=== PATIENT | male | born 1980 | race Caucasian/White ===

== ENCOUNTER 2016-12-22 14:09 | Emergency (ER) | payer SELFPAY ==
--- NOTE | 2016-12-22 14:28 | ERPHSYRPT ---
- History of Present Illness Time Seen by Provider: 12/22/16 14:23 Source: patient Exam Limitations: no limitations Patient Subjective Stated Complaint: rt foot pain Triage Nursing Assessment: 10 min [employer]--pt kicked a pot with a shoe on out of anger and now has pain to arch part of rt foot--inner rt foot. no bruising or swelling noted. pedal pulse noted. Physician History: Kicked concrete post with R foot about 15 min [employer]. States throbbing pain to R midfoot area but no bruising to area. Unable to bear weight due to pain. Denies any numbness or tingling to distal toes area. Denies any pain to R ankle /leg areas. Method of Injury: direct blow Occurred: just prior to arrival Quality: throbbing Severity of Pain-Max: moderate Severity of Pain-Current: moderate Lower Extremities Pain: foot: right Modifying Factors: Improves With: immobilization (improves), movement (worsens) Associated Symptoms: unable to bear weight, No snapping sensation, No popping sensation Allergies/Adverse Reactions: hydrocodone bitartrate [From Vicodin] Allergy (Mild, Verified 12/22/16 14:18) Rash Home Medications: No Home Meds 1 ea [facility] UD 12/22/16 [History] Hx Tetanus, Diphtheria Vaccination/Date Given: Yes Hx Influenza Vaccination/Date Given: No Hx Pneumococcal Vaccination/Date Given: No Immunizations Up to Date: Yes - Review of Systems Constitutional: No Fever, No Chills Eyes: No Symptoms Ears, Nose, & Throat: No Symptoms Respiratory: No Cough, No Dyspnea Cardiac: No Chest Pain, No Edema, No Syncope Abdominal/Gastrointestinal: No Abdominal Pain, No Nausea, No Vomiting, No Diarrhea Genitourinary Symptoms: No Dysuria Musculoskeletal: Injury, No Back Pain, No Neck Pain Skin: No Symptoms, No Rash Neurological: No Dizziness, No Focal Weakness, No Sensory Changes Psychological: No Symptoms Endocrine: No Symptoms All Other Systems: Reviewed and Negative - Past Medical History Pertinent Past Medical History: Yes Neurological History: Migraines ENT History: No Pertinent History Cardiac History: High Cholesterol Respiratory History: Other (Spontaneous PTX) Endocrine Medical History: No Pertinent History Musculoskeletal History: No Pertinent History GI Medical History: No Pertinent History History: No Pertinent History Psycho-Social History: No Pertinent History Male Reproductive Disorders: No Pertinent History Other Medical History: chronic back pain. collapsed lung spontaneous - Past Surgical History Past Surgical History: No Neuro Surgical History: No Pertinent History Cardiac: No Pertinent History Respiratory: Other Gastrointestinal: No Pertinent History Genitourinary: No Pertinent History Musculoskeletal: No Pertinent History Male Surgical History: No Pertinent History Other Surgical History: no prior back surgery - Social History Smoking Status: Former smoker How long have you smoked: 24 Exposure to second hand smoke: Yes Drug Use: marijuana Patient Lives Alone: No - Nursing Vital Signs Nursing Vital Signs: Initial Vital Signs Temperature 97.3 F Temperature Source Oral Pulse Rate 81 Respiratory Rate 18 Blood Pressure [Right Arm] 159/83 Pain Intensity 8 - Physical Exam General Appearance: alert Eyes, Ears, Nose, Throat Exam: moist mucous membranes Neck Exam: non-tender, supple Cardiovascular/Respiratory Exam: chest non-tender, normal breath sounds, regular rate/rhythm, no respiratory distress Gastrointestinal/Abdominal Exam: non-tender, guarding Back Exam: normal inspection, No vertebral tenderness Knees Exam: bilateral knee: non-tender, normal inspection, normal range of motion, no evidence of injury Ankle Exam: bilateral ankle: non-tender, normal inspection, normal range of motion, no evidence of injury Foot Exam: right foot: bone tenderness (midfoot), limited range of motion, pain , swelling, left foot: non-tender, normal inspection, normal range of motion, no evidence of injury DTR - Lower Extremities Exam: knee (R): 2+, knee (L): 2+ Neuro/Tendon Exam: normal sensation, normal motor functions Mental Status Exam: alert, oriented x 3, cooperative Skin Exam: normal color, warm, dry SpO2: 98 Oxygen Delivery: Room Air - Radiology Exams Right Foot X-ray Interpretation: Interpreted by me, No Fracture Ordered Tests: Active Orders 24 hr Category Date Time Status FOOT (MINIMUM 3 VIEWS) Stat Exams 12/22/16 14:29 Taken Medication Summary Discontinued Medications Generic Name Dose Route Start Last Admin Trade Name Freq PRN Reason Stop Dose Admin Ketorolac Tromethamine 60 mg 12/22/16 14:29 12/22/16 14:34 Toradol 30 Mg Injection IM 12/22/16 14:30 60 mg STAT ONE Administration Ketorolac Tromethamine Confirm 12/22/16 14:33 Toradol 30 Mg Injection Administered 12/22/16 14:34 Dose 60 mg .ROUTE .STK-MED ONE - Progress Progress: improved Progress Note: 12/22/16 14:38 Pt. given Toradoll for pain which did decrease his pain 12/22/16 15:00 Counseled pt/family regarding: diagnosis, rad results - Departure Time of Disposition: 15:01 Departure Disposition: Home Clinical Impression: Contusion of foot, right, Spontaneous pneumothorax Condition: Stable Critical Care Time: No Instructions: Contusion Additional Instructions: Motrin 800mg every 8 hrs with food Rest, ice, elevate and decrease weight bearing to decrease pain/swelling Return for worse pain, swelling, numbness, tingling or any problems
[2016-12-22] MEDS ORDERED: TORAdol 30 mg Injection IM ONE (14:29)
[2016-12-22] MEDS ORDERED: TORAdol 30 mg Injection ONE (14:33)
[2016-12-22 15:28] VITALS: BP 127/80; PULSE 75; O2SAT 100
--- NOTE | 2016-12-22 21:08 | XRAY ---
Indication: Lateral foot pain following kicking injury. Comparison: None 3 nonweightbearing views of the right foot obtained. No bony, articular, or soft tissue abnormalities.
== END 2016-12-22 15:27 | disposition home or self-care (01) ==
LOC: ED 14:09
DX: S90.31XA Contusion of right foot, initial encounter (principal); J93.83 Other pneumothorax; W22.8XXA Striking against or struck by other objects, initial encounter
CPT/HCPCS: 73630; 96372; 99284; J1885

== ENCOUNTER 2018-06-19 00:02 | Emergency (ER) | payer OTHER ==
[2018-06-19] MEDS ORDERED: solu-MEDROL 125 MG IV ONE (00:26)
[2018-06-19] MEDS ORDERED: DUONEB 0.5-3 MG/3 ml Neb IH ONE ×2 (00:26→00:37)
--- NOTE | 2018-06-19 00:26 | ERPHSYRPT ---
- History of Present Illness Time Seen by Provider: 06/19/18 00:22 Source: patient Exam Limitations: no limitations Patient Subjective Stated Complaint: pt states he has been feeling short of breath today and has increased tonight. states he is dizzy and has trouble concentrating. Triage Nursing Assessment: pt alert and oriented, asnwers questions approp. pt pausing occasionally to take deep breath. respirations nonlabored with lungs cta. skin warm, moist. Physician History: The patient is a 38-year-old male complaining that he's been increasingly short of breath for several days but it got worse today. He has COPD and is supposed to take several inhalers but does not because he doesn't like doctors. He denies chest pain. Yesterday he was nauseated and had diarrhea. He had a headache 2 days ago. He used to smoke but quit. His past medical history is significant for COPD. The patient walked a long distance to come to the hospital. Timing/Duration: day(s) (several), gradual onset, worse Activities at Onset: none Severity of Dyspnea-Max: moderate Severity of Dyspnea-Current: mild Possible Cause: occasional episodes Modifying Factors: Improves With: activity Associated Symptoms: productive cough, No edema, No fever Allergies/Adverse Reactions: hydrocodone bitartrate [From Vicodin] Allergy (Mild, Verified 06/19/18 00:17) Rash Home Medications: No Home Meds [No Home Meds] 1 [facility] UD 12/22/16 [History] Hx Tetanus, Diphtheria Vaccination/Date Given: Yes Hx Influenza Vaccination/Date Given: No Hx Pneumococcal Vaccination/Date Given: No Immunizations Up to Date: Yes - Review of Systems Constitutional: No Fever, No Chills Eyes: No Symptoms Ears, Nose, & Throat: No Symptoms Respiratory: Dyspnea, Dyspnea on Exertion (BOYD) Cardiac: No Chest Pain, No Edema, No Syncope Abdominal/Gastrointestinal: No Abdominal Pain, No Nausea, No Vomiting, No Diarrhea Genitourinary Symptoms: No Dysuria Musculoskeletal: No Back Pain, No Neck Pain Skin: No Rash Neurological: No Dizziness, No Focal Weakness, No Sensory Changes Psychological: No Symptoms Endocrine: No Symptoms Hematologic/Lymphatic: No Symptoms Immunological/Allergic: No Symptoms All Other Systems: Reviewed and Negative - Past Medical History Pertinent Past Medical History: Yes Neurological History: Migraines ENT History: No Pertinent History Cardiac History: High Cholesterol Respiratory History: COPD, Other Endocrine Medical History: No Pertinent History Musculoskeletal History: No Pertinent History GI Medical History: No Pertinent History History: No Pertinent History Psycho-Social History: No Pertinent History Male Reproductive Disorders: No Pertinent History Other Medical History: chronic back pain. collapsed lung spontaneous - Past Surgical History Past Surgical History: No Neuro Surgical History: No Pertinent History Cardiac: No Pertinent History Respiratory: Other Gastrointestinal: No Pertinent History Genitourinary: No Pertinent History Musculoskeletal: No Pertinent History Male Surgical History: No Pertinent History Other Surgical History: no prior back surgery - Social History Smoking Status: Former smoker How long have you smoked: 24 Exposure to second hand smoke: Yes Drug Use: marijuana Patient Lives Alone: No - Nursing Vital Signs Nursing Vital Signs: Initial Vital Signs Temperature 97.6 F 06/19/18 00:04 Pulse Rate 89 06/19/18 00:04 Respiratory Rate 20 06/19/18 00:04 Blood Pressure 154/101 06/19/18 00:04 O2 Sat by Pulse Oximetry 100 06/19/18 00:04 Pain Scale Pain Intensity 3 - Physical Exam General Appearance: no apparent distress, alert Eye Exam: PERRL/EOMI Ears, Nose, Throat Exam: hearing grossly normal Neck Exam: normal inspection, supple Respiratory Exam: rhonchi Cardiovascular/Chest Exam: normal heart sounds, regular rate/rhythm Abdominal/Gastrointestinal Exam: soft, No tenderness, No distention, No mass Rectal Exam: not done Extremity Exam: non-tender, normal range of motion, normal inspection, no calf tenderness, no pedal edema Neurologic Exam: alert, oriented x 3, cooperative, digital media analyst II-XII nml as tested, sensation nml, No motor deficits Skin Exam: normal color, warm, No dry SpO2 Interpretation: normal SpO2: 100 Oxygen Delivery: Room Air - Course EKG Interpreted by Me: RATE, Sinus Rhythm, NORMAL AXIS, NORMAL INTERVALS, NORMAL QRS, NORMAL ST-T, Other (no change compared to EKG 05/02/16.) - Radiology Exams Chest X-ray Interpretation: Interpreted by me, Negative, No Pneumothorax - CT Exams Chest CT Interpretation: Tele-radiologist Report (per Dr Colon), No PE, Other (no PTX ; no pneumonia) Ordered Tests: Active Orders 24 hr Category Date Time Status Oxygen-ED Only NASAL CANNULA 2 lpm Care 06/19/18 00:26 Active CHEST 2 VIEWS (PA AND LAT) Stat Exams 06/19/18 00:27 Taken CHEST WITH CONTRAST [CT] Stat Exams 06/19/18 01:17 Taken CBC W DIFF Stat Lab 06/19/18 00:15 Completed CMP Stat Lab 06/19/18 00:15 Completed D-DIMER QUANTITATION Stat Lab 06/19/18 00:15 Completed NT PRO BNP Stat Lab 06/19/18 00:15 Completed TROPONIN Q3H Lab 06/19/18 00:15 Completed TROPONIN Q3H Lab 06/19/18 03:30 Ordered TROPONIN Q3H Lab 06/19/18 06:30 Ordered TROPONIN Q3H Lab 06/19/18 09:30 Ordered TROPONIN Q3H Lab 06/19/18 12:30 Ordered UA W/RFX UR CULTURE Stat Lab 06/19/18 02:35 Completed Urine Triage Profile Stat Lab 06/19/18 02:35 Received Peak Expiratory Flow Rate ONCE RT 06/19/18 00:43 Active Respiratory Nebulizer STAT RT 06/19/18 00:27 Completed Respiratory Therapy Assessment DAILY RT 06/19/18 00:43 Active Medication Summary Discontinued Medications Generic Name Dose Route Start Last Admin Trade Name Freq PRN Reason Stop Dose Admin Albuterol/Ipratropium 3 ml 06/19/18 00:26 06/19/18 00:38 Duoneb 0.5-3 Mg/3 Ml Neb IH 06/19/18 00:27 3 ml STAT ONE Administration Albuterol/Ipratropium Confirm 06/19/18 00:37 Duoneb 0.5-3 Mg/3 Ml Neb Administered 06/19/18 00:38 Dose 3 ml IH .STK-MED ONE Methylprednisolone Sodium Succinate 125 mg 06/19/18 00:26 06/19/18 00:45 Solu-Medrol 125 Mg IV 06/19/18 00:27 125 mg STAT ONE Administration Methylprednisolone Sodium Succinate Confirm 06/19/18 00:42 Solu-Medrol 125 Mg Administered 06/19/18 00:43 Dose 125 mg .ROUTE .STK-MED ONE Lab/Rad Data: Laboratory Result Diagrams 06/19/18 00:15 06/19/18 00:15 Laboratory Results 06/19/18 06/19/18 06/19/18 Range/Units 02:35 02:35 00:15 WBC (4.0-10.5) K/mm3 RBC (4.1-5.6) M/mm3 Hgb (12.5-18.0) gm/dl Hct (42-50) % MCV (78-100) fl MCH (26-32) pg MCHC (32-36) g/dl RDW (11.5-14.0) % Plt Count (150-450) K/mm3 MPV (6-9.5) fl Gran % (36.0-66.0) % Eos # (Auto) (0-0.5) Absolute Lymphs (auto) (1.0-4.6) Absolute Monos (auto) (0.0-1.3) Lymphocytes % (24.0-44.0) % Monocytes % (0.0-12.0) % Eosinophils % (0.00-5.0) % Basophils % (0.0-0.4) % Absolute Granulocytes (1.4-6.9) Basophils # (0-0.4) D-Dimer (215-500) ng/mL Sodium (137-145) mmol/L Potassium (3.5-5.1) mmol/L Chloride (98-107) mmol/L Carbon Dioxide (22-30) mmol/L Anion Gap (5-15) MEQ/L BUN (9-20) mg/dL Creatinine (0.66-1.25) mg/dL Estimated GFR ML/MIN Glucose (74-106) mg/dL Calcium (8.4-10.2) mg/dL Total Bilirubin (0.2-1.3) mg/dL AST (17-59) U/L ALT (0-50) U/L Alkaline Phosphatase (38-126) U/L Troponin I < 0.012 (0.000-0.034) ng/mL NT-Pro-B Natriuret Pep (0-450) pg/mL Serum Total Protein (6.3-8.2) g/dL Albumin (3.5-5.0) g/dL Ur Collection Type CLEAN CATCH Urine Color YELLOW (YELLOW) Urine Appearance CLEAR (CLEAR) Urine pH 5.0 (5-6) Ur Specific [place] 1.015 (1.005-1.025) Urine Protein NEGATIVE (Negative) Urine Ketones NEGATIVE (NEGATIVE) Urine Blood NEGATIVE (0-5) [place]/ul Urine Nitrite NEGATIVE (NEGATIVE) Urine Bilirubin NEGATIVE (NEGATIVE) Urine Urobilinogen NORMAL (0-1) mg/dL Ur Leukocyte Esterase NEGATIVE (NEGATIVE) Urine Culture Reflexed NO (NO) Urine Glucose 1000 (NEGATIVE) mg/dL Urine Opiates Level NEGATIVE (NEGATIVE) Ur Methadone NEGATIVE (NEGATIVE) Urine Barbiturates NEGATIVE (NEGATIVE) Ur Phencyclidine (PCP) NEGATIVE (NEGATIVE) Urine Amphetamine NEGATIVE (NEGATIVE) U Benzodiazepine Level NEGATIVE (NEGATIVE) Urine Cocaine NEGATIVE (NEGATIVE) Urine Marijuana (THC) POSITIVE (NEGATIVE) 06/19/18 06/19/18 06/19/18 Range/Units 00:15 00:15 00:15 WBC 6.4 (4.0-10.5) K/mm3 RBC 5.19 (4.1-5.6) M/mm3 Hgb 15.7 (12.5-18.0) gm/dl Hct 43.8 (42-50) % MCV 84.4 (78-100) fl MCH 30.3 (26-32) pg MCHC 35.8 (32-36) g/dl RDW 12.5 (11.5-14.0) % Plt Count 147 L (150-450) K/mm3 MPV 12.6 H (6-9.5) fl Gran % 57.4 (36.0-66.0) % Eos # (Auto) 0.24 (0-0.5) Absolute Lymphs (auto) 2.12 (1.0-4.6) Absolute Monos (auto) 0.33 (0.0-1.3) Lymphocytes % 33.0 (24.0-44.0) % Monocytes % 5.1 (0.0-12.0) % Eosinophils % 3.7 (0.00-5.0) % Basophils % 0.8 (0.0-0.4) % Absolute Granulocytes 3.68 (1.4-6.9) Basophils # 0.05 (0-0.4) D-Dimer 681 H* (215-500) ng/mL Sodium 140 (137-145) mmol/L Potassium 3.9 (3.5-5.1) mmol/L Chloride 101 (98-107) mmol/L Carbon Dioxide 24 (22-30) mmol/L Anion Gap 18.3 H (5-15) MEQ/L BUN 17 (9-20) mg/dL Creatinine 1.01 (0.66-1.25) mg/dL Estimated GFR > 60.0 ML/MIN Glucose 315 H (74-106) mg/dL Calcium 10.1 (8.4-10.2) mg/dL Total Bilirubin 0.50 (0.2-1.3) mg/dL AST 16 L (17-59) U/L ALT 18 (0-50) U/L Alkaline Phosphatase 69 (38-126) U/L Troponin I (0.000-0.034) ng/mL NT-Pro-B Natriuret Pep 31.2 (0-450) pg/mL Serum Total Protein 7.6 (6.3-8.2) g/dL Albumin 4.7 (3.5-5.0) g/dL Ur Collection Type Urine Color (YELLOW) Urine Appearance (CLEAR) Urine pH (5-6) Ur Specific [place] (1.005-1.025) Urine Protein (Negative) Urine Ketones (NEGATIVE) Urine Blood (0-5) [place]/ul Urine Nitrite (NEGATIVE) Urine Bilirubin (NEGATIVE) Urine Urobilinogen (0-1) mg/dL Ur Leukocyte Esterase (NEGATIVE) Urine Culture Reflexed (NO) Urine Glucose (NEGATIVE) mg/dL Urine Opiates Level (NEGATIVE) Ur Methadone (NEGATIVE) Urine Barbiturates (NEGATIVE) Ur Phencyclidine (PCP) (NEGATIVE) Urine Amphetamine (NEGATIVE) U Benzodiazepine Level (NEGATIVE) Urine Cocaine (NEGATIVE) Urine Marijuana (THC) (NEGATIVE) - Progress Progress: improved Air Movement: good Blood Culture(s) Obtained: No Antibiotics given: No Counseled pt/family regarding: lab results, diagnosis, need for follow-up, rad results - Departure Time of Disposition: 03:12 Departure Disposition: Home Clinical Impression: COPD (chronic obstructive pulmonary disease) Condition: Stable Critical Care Time: No Referrals: MAYRA MOLINA [Primary Care Provider] - Instructions: Chronic Obstructive Pulmonary Disease Additional Instructions: You have COPD. You were given a breathing treatment with albuterol neb and Solu -Medrol 125 mg by IV in the ER. Your CT scan of your chest did not show any embolism nor did it show any lung collapse. Follow-up with your primary medical doctor later this week.
[2018-06-19 00:39] LABS: BASOPHIL % 0.8 % (0.0-0.4); Basophil (Absolute #) 0.05 (0-0.4); Eosinophil % 3.7 % (0.00-5.0); Eosinophil (Absolute #) 0.24 (0-0.5); Granulocyte Absolute (ANC) 3.68 (1.4-6.9); Granulocytes % 57.4 % (36.0-66.0); Hematocrit 43.8 % (42-50); Hemoglobin 15.7 gm/dl (12.5-18.0); Lymphocyte (Absolute #) 2.12 (1.0-4.6); Mean Cell Volume 84.4 fl (78-100); Mean Corpuscular Hemoglobin 30.3 pg (26-32); Mean Corpuscular Hgb Concent. 35.8 g/dl (32-36); Mean Platelet Volume 12.6 fl (6-9.5); Monocyte (Absolute #) 0.33 (0.0-1.3); Monocytes % 5.1 % (0.0-12.0); Platelet Count 147 K/mm3 (150-450); Red Blood Count 5.19 M/mm3 (4.1-5.6); Red Cell Distribution Width 12.5 % (11.5-14.0); White Blood Count 6.4 K/mm3 (4.0-10.5)
[2018-06-19] MEDS ORDERED: solu-MEDROL 125 MG ONE (00:42)
[2018-06-19 01:09] LABS: ALBUMIN 4.7 g/dL (3.5-5.0); ALKALINE PHOSPHATASE 69 U/L (38-126); ANION GAP 18.3 MEQ/L (5-15); BLOOD UREA NITROGEN 17 mg/dL (9-20); CHLORIDE 101 mmol/L (98-107); Calcium 10.1 mg/dL (8.4-10.2); Carbon Dioxide 24 mmol/L (22-30); Creatinine 1 1.01 mg/dL (0.66-1.25); Glucose 315 mg/dL (74-106); NT PRO BNP 31.2 pg/mL (0-450); Potassium 3.9 mmol/L (3.5-5.1); SGOT/AST 16 U/L (17-59); SGPT/ALT 18 U/L (0-50); SODIUM 140 mmol/L (137-145); Total Protein 7.6 g/dL (6.3-8.2)
[2018-06-19 02:52] VITALS: BP 127/88; PULSE 67
[2018-06-19 02:58] LABS: Appearance CLEAR (CLEAR); Bilirubin NEGATIVE (NEGATIVE); Blood NEGATIVE Ery/ul (0-5); Glucose 1000 mg/dL (NEGATIVE); Ketones NEGATIVE (NEGATIVE); Leukocyte Esterase NEGATIVE (NEGATIVE); Nitrite NEGATIVE (NEGATIVE); Protein,Urine Dip NEGATIVE (Negative); Specific Gravity 1.015 (1.005-1.025); Urobilinogen NORMAL mg/dL (0-1)
[2018-06-19 03:07] LABS: Amphetamine,Urine NEGATIVE (NEGATIVE); Barbiturate,Urine NEGATIVE (NEGATIVE); Benzodiazepine,Urine NEGATIVE (NEGATIVE); Cocaine,Urine NEGATIVE (NEGATIVE); Methadone,Urine NEGATIVE (NEGATIVE); Opiate,Urine NEGATIVE (NEGATIVE); PCP,Urine NEGATIVE (NEGATIVE); THC,Urine POSITIVE (NEGATIVE)
[2018-06-19 03:09] VITALS: O2SAT 100
--- NOTE | 2018-06-19 09:05 | XRAY ---
Indication: Short of breath. Elevated d-dimer. Multiple contiguous axial images obtained through the chest using 80 cc Isovue 370 contrast and PE protocol. Comparison: None There is satisfactory opacification of the pulmonary arteries to include the lobar and segmental branches. No filling defect or pulmonary embolus. Heart is not enlarged. Aorta is normal in course and caliber. No pathologic mediastinal/hilar lymphadenopathy. Examination of the lung parenchyma demonstrates mild bilateral dependent atelectasis. No suspicious pulmonary mass, infiltrate, or effusion. Bony thorax intact. Limited upper abdomen including adrenal glands unremarkable. Impression: Negative pulmonary embolus. No acute cardiopulmonary abnormalities. Comment: Preliminary interpretation was made by [facility] [[email or web address]]. No discrepancy. CT DI 14.13
--- NOTE | 2018-06-19 09:07 | XRAY ---
Indication: Short of breath. Comparison: May 02, 2016. PA/lateral chest hyperinflated and clear. Heart and mediastinal structures within normal limits. Bony thorax intact. Impression: Nonacute hyperinflated chest.
== END 2018-06-19 03:34 | disposition home or self-care (01) ==
LOC: ED 00:02
DX: J44.9 Chronic obstructive pulmonary disease, unspecified (principal)
CPT/HCPCS: 36415; 71046; 71260; 80053; 80307; 81002; 83880; 84484; 85025; 85379; 94150; 94640; 96374; 99284; J2930; A9270-GY

== ENCOUNTER 2021-04-22 22:40 | Emergency (ER) | payer OTHER ==
[2021-04-22] MEDS ORDERED: Zofran 4 MG/2 ML VIAL ONE (22:57)
[2021-04-22] MEDS ORDERED: Sodium Chloride 0.9% 1000 ML 1,000 ML ONE (22:57)
[2021-04-22] MEDS ORDERED: Zofran 4 MG/2 ML VIAL IV ONE (22:58)
[2021-04-22] MEDS ORDERED: Sodium Chloride 0.9% 1000 ML 1,000 ML IV STA (22:58)
[2021-04-22 23:40] LABS: Absolute Neutrophil Ct (ANC) 2.09 (1.4-6.9); BASOPHIL % 0.4 % (0.0-0.4); Basophil (Absolute #) 0.01 (0-0.4); Eosinophil % 0.7 % (0.00-5.0); Eosinophil (Absolute #) 0.02 (0-0.5); Hematocrit 41.9 % (42-50); Hemoglobin 14.3 gm/dl (12.5-18.0); Lymphocyte (Absolute #) 0.45 (1.0-4.6); Mean Cell Volume 85.3 fl (78-100); Mean Corpuscular Hemoglobin 29.1 pg (26-32); Mean Corpuscular Hgb Concent. 34.1 g/dl (32-36); Mean Platelet Volume 12.5 fl (7.5-11.0); Monocyte (Absolute #) 0.25 (0.0-1.3); Monocytes % 8.9 % (0.0-12.0); Platelet Count 74 K/mm3 (150-450); Red Blood Count 4.91 M/mm3 (4.1-5.6); Red Cell Distribution Width 12.4 % (11.5-14.0); White Blood Count 2.8 K/mm3 (4.0-10.5)
[2021-04-22 23:41] LABS: INR 1.14 (0.8-3.0); PROTIME 13.4 SECONDS (9.4-12.5)
[2021-04-22 23:54] LABS: ALBUMIN 4.5 g/dL (3.5-5.0); ALKALINE PHOSPHATASE 62 U/L (38-126); ANION GAP 17.9 MEQ/L (5-15); BLOOD UREA NITROGEN 15 mg/dL (9-20); CHLORIDE 101 mmol/L (98-107); Calcium 9.1 mg/dL (8.4-10.2); Carbon Dioxide 23 mmol/L (22-30); Creatinine 1 0.89 mg/dL (0.66-1.25); EST GLOMERULAR FILTRATION RATE > 60.0 ML/MIN; Glucose 218 mg/dL (74-106); MAGNESIUM 1.9 mg/dL (1.6-2.3); NT PRO BNP 50.2 pg/mL (0-450); Potassium 3.7 mmol/L (3.5-5.1); SGOT/AST 22 U/L (17-59); SGPT/ALT 15 U/L (0-50); SODIUM 138 mmol/L (137-145); Total Protein 7.3 g/dL (6.3-8.2)
--- NOTE | 2021-04-23 00:42 | ERPHSYRPT ---
- History of Present Illness Time Seen by Provider: 04/22/21 23:00 Patient Subjective Stated Complaint: Pt states, "my has covid and I started feeling a little bad last night but was able to work today. After work, I started feeling really bad, my chest is on fire, hurts to take a deep breath, diarrhea today, body aches, fatigue, chilling, no taste or smell". Triage Nursing Assessment: Pt arrived at ER via family car. Pt c/o not feeling great last night but was ok for most of the day today as he was able to work. After work today, starting feeling much worse around 2100. Pt states, "my chest feels like it's on fire, chest hurts when taking a deep breath, diarrhea several times today, body aches all over, chills, fatigue. Pt denies nausea, vomiting and fatigue. Physician History: Patient is a 41-year-old male whose has had Covid according to him numerous times who presents with a complaint of shortness of breath chest pain profuse sweats lost of taste and smell body aches headache diarrhea etc. Symptoms started yesterday and were worse today. Timing/Duration: yesterday Activities at Onset: none Severity of Dyspnea-Max: moderate Severity of Dyspnea-Current: moderate Possible Cause: no prior episodes Modifying Factors: Improves With: coughing Associated Symptoms: cough, chest pain/discomfort, weakness, sweating Allergies/Adverse Reactions: hydrocodone bitartrate [From Vicodin] Allergy (Mild, Verified 06/19/18 00:17) Rash Home Medications: No Home Meds [No Home Meds] 1 rudi ANG 12/22/16 [History] Hx Tetanus, Diphtheria Vaccination/Date Given: Yes Hx Influenza Vaccination/Date Given: No Hx Pneumococcal Vaccination/Date Given: No Immunizations Up to Date: Yes Travel Risk - International Travel Have you traveled outside of the country in past 3 weeks: No - Coronavirus Screening Symptoms: Shortness of Breath, Vomiting/Diarrhea, Loss of Taste or Smell, Headaches/Body Aches/Fatigue Close contact with a COVID-19 positive Pt in past 14-21 Days: Yes - Vaccine Status Have you recieved a Covid-19 vaccination: No - Review of Systems Constitutional: Night Sweats Eyes: No Symptoms Ears, Nose, & Throat: No Symptoms Respiratory: Cough, Dyspnea, Dyspnea on Exertion (BOYD) Cardiac: Chest Pain Abdominal/Gastrointestinal: Abdominal Pain, Nausea, Diarrhea Genitourinary Symptoms: No Dysuria Musculoskeletal: Arthralgias, Back Pain, Neck Pain, Joint Redness, Joint Pain, Myalgias Skin: No Rash Neurological: Headache Psychological: No Symptoms Endocrine: No Symptoms - Past Medical History Pertinent Past Medical History: Yes Neurological History: Migraines ENT History: No Pertinent History Cardiac History: High Cholesterol Respiratory History: COPD, Emphysema, Other Endocrine Medical History: No Pertinent History Musculoskeletal History: No Pertinent History GI Medical History: No Pertinent History History: No Pertinent History Psycho-Social History: No Pertinent History Male Reproductive Disorders: No Pertinent History Other Medical History: chronic back pain. collapsed lung spontaneous - Past Surgical History Past Surgical History: Yes Neuro Surgical History: No Pertinent History Cardiac: No Pertinent History Respiratory: Other Gastrointestinal: No Pertinent History Genitourinary: No Pertinent History Musculoskeletal: No Pertinent History Male Surgical History: No Pertinent History Other Surgical History: no prior back surgery - Social History Smoking Status: Current every day smoker How long have you smoked: 25 Exposure to second hand smoke: Yes Drug Use: none Patient Lives Alone: No - Nursing Vital Signs Nursing Vital Signs: Initial Vital Signs Temperature 98.8 F 04/22/21 22:55 Pulse Rate 82 04/22/21 22:55 Respiratory Rate 18 04/22/21 22:55 Blood Pressure 122/80 04/22/21 22:55 O2 Sat by Pulse Oximetry 100 04/22/21 22:55 Pain Scale Pain Intensity 7 - Physical Exam General Appearance: moderate distress, alert Eye Exam: PERRL/EOMI Neck Exam: normal inspection, supple Respiratory Exam: diminished breath sounds Cardiovascular/Chest Exam: normal heart sounds, regular rate/rhythm Abdominal/Gastrointestinal Exam: soft, No tenderness, No distention, No mass Extremity Exam: non-tender, normal range of motion, normal inspection, no calf tenderness, no pedal edema Neurologic Exam: alert, oriented x 3, cooperative, bottom filler II-XII nml as tested, sensation nml, No motor deficits Skin Exam: normal color, warm, No dry SpO2 Interpretation: normal SpO2: 98 O2 Delivery: Room Air - Course Nursing assessment & vital signs reviewed: Yes EKG Interpreted by Me: RATE (77), Sinus Rhythm, NORMAL AXIS, NORMAL INTERVALS, NORMAL QRS, NORMAL ST-T - Radiology Exams Chest X-ray Interpretation: Interpreted by me, Other (Hardware is noted and there seems to be a faint infiltrate in the left lower lobe.) Ordered Tests: Active Orders 24 hr Category Date Time Status Nephrology Social Worker STAT Care 04/22/21 23:03 Active EKG-ER Only STAT Care 04/22/21 23:03 Active IV Insertion STAT Care 04/22/21 23:02 Active CHEST 1 VIEW (PORTABLE) Stat Exams 04/23/21 00:10 Taken BLOOD CULTURE Stat Lab 04/22/21 23:59 Received CBC W DIFF Stat Lab 04/22/21 23:33 Completed CMP Stat Lab 04/22/21 23:33 Completed D-DIMER QUANTITATIVE Stat Lab 04/22/21 23:33 Completed Lactic Acid Stat Lab 04/22/21 23:30 Completed MAGNESIUM Stat Lab 04/22/21 23:33 Completed NT PRO BNP Stat Lab 04/22/21 23:33 Completed PROTIME WITH INR Stat Lab 04/22/21 23:33 Completed TROPONIN Q3H Lab 04/22/21 23:33 Completed TROPONIN Q3H Lab 04/23/21 02:30 Ordered TROPONIN Q3H Lab 04/23/21 05:30 Ordered TROPONIN Q3H Lab 04/23/21 08:30 Ordered TROPONIN Q3H Lab 04/23/21 11:30 Ordered UA W/RFX UR CULTURE Stat Lab 04/23/21 00:24 Received Medication Summary Discontinued Medications Generic Name Dose Route Start Last Admin Trade Name Freq PRN Reason Stop Dose Admin Sodium Chloride 1,000 mls @ 999 mls/hr 04/22/21 22:58 04/22/21 22:59 Sodium Chloride 0.9% 1000 Ml IV 04/22/21 23:58 999 mls/hr .Q1H1M STA Administration Sodium Chloride Confirm 04/22/21 22:57 Sodium Chloride 0.9% 1000 Ml Administered 04/22/21 22:58 Dose 1,000 mls @ ud .ROUTE .STK-MED ONE Ondansetron HCl 4 mg 04/22/21 22:58 04/22/21 23:00 Zofran 4 Mg/2 Ml Vial IV 04/22/21 22:59 4 mg STAT ONE Administration Ondansetron HCl Confirm 04/22/21 22:57 Zofran 4 Mg/2 Ml Vial Administered 04/22/21 22:58 Dose 4 mg .ROUTE .STK-MED ONE Lab/Rad Data: Laboratory Result Diagrams 04/22/21 23:33 04/22/21 23:33 Laboratory Results 04/23/21 04/22/21 04/22/21 Range/Units 00:00 23:33 23:33 WBC (4.0-10.5) K/mm3 RBC (4.1-5.6) M/mm3 Hgb (12.5-18.0) gm/dl Hct (42-50) % MCV (78-100) fl MCH (26-32) pg MCHC (32-36) g/dl RDW (11.5-14.0) % Plt Count (150-450) K/mm3 MPV (7.5-11.0) fl Gran % (36.0-66.0) % Eos # (Auto) (0-0.5) Absolute Lymphs (auto) (1.0-4.6) Absolute Monos (auto) (0.0-1.3) Lymphocytes % (24.0-44.0) % Monocytes % (0.0-12.0) % Eosinophils % (0.00-5.0) % Basophils % (0.0-0.4) % Absolute Granulocytes (1.4-6.9) Basophils # (0-0.4) PT 13.4 H (9.4-12.5) SECONDS INR 1.14 (0.8-3.0) D-Dimer 416 (215-500) ng/mL Sodium (137-145) mmol/L Potassium (3.5-5.1) mmol/L Chloride (98-107) mmol/L Carbon Dioxide (22-30) mmol/L Anion Gap (5-15) MEQ/L BUN (9-20) mg/dL Creatinine (0.66-1.25) mg/dL Estimated GFR ML/MIN Glucose (74-106) mg/dL Lactic Acid (0.4-2.0) Calcium (8.4-10.2) mg/dL Magnesium (1.6-2.3) mg/dL Total Bilirubin (0.2-1.3) mg/dL AST (17-59) U/L ALT (0-50) U/L Alkaline Phosphatase (38-126) U/L Troponin I < 0.012 (0.000-0.034) ng/mL NT-Pro-B Natriuret Pep (0-450) pg/mL Serum Total Protein (6.3-8.2) g/dL Albumin (3.5-5.0) g/dL SARS-CoV-2 (PCR) POSITIVE A (NEGATIVE) 04/22/21 04/22/21 04/22/21 Range/Units 23:33 23:33 23:30 WBC 2.8 L (4.0-10.5) K/mm3 RBC 4.91 (4.1-5.6) M/mm3 Hgb 14.3 (12.5-18.0) gm/dl Hct 41.9 L (42-50) % MCV 85.3 (78-100) fl MCH 29.1 (26-32) pg MCHC 34.1 (32-36) g/dl RDW 12.4 (11.5-14.0) % Plt Count 74 L (150-450) K/mm3 MPV 12.5 H (7.5-11.0) fl Gran % 74.0 H (36.0-66.0) % Eos # (Auto) 0.02 (0-0.5) Absolute Lymphs (auto) 0.45 L (1.0-4.6) Absolute Monos (auto) 0.25 (0.0-1.3) Lymphocytes % 16.0 L (24.0-44.0) % Monocytes % 8.9 (0.0-12.0) % Eosinophils % 0.7 (0.00-5.0) % Basophils % 0.4 (0.0-0.4) % Absolute Granulocytes 2.09 (1.4-6.9) Basophils # 0.01 (0-0.4) PT (9.4-12.5) SECONDS INR (0.8-3.0) D-Dimer (215-500) ng/mL Sodium 138 (137-145) mmol/L Potassium 3.7 (3.5-5.1) mmol/L Chloride 101 (98-107) mmol/L Carbon Dioxide 23 (22-30) mmol/L Anion Gap 17.9 H (5-15) MEQ/L BUN 15 (9-20) mg/dL Creatinine 0.89 (0.66-1.25) mg/dL Estimated GFR > 60.0 ML/MIN Glucose 218 H (74-106) mg/dL Lactic Acid 1.3 (0.4-2.0) Calcium 9.1 (8.4-10.2) mg/dL Magnesium 1.9 (1.6-2.3) mg/dL Total Bilirubin 0.40 (0.2-1.3) mg/dL AST 22 (17-59) U/L ALT 15 (0-50) U/L Alkaline Phosphatase 62 (38-126) U/L Troponin I (0.000-0.034) ng/mL NT-Pro-B Natriuret Pep 50.2 (0-450) pg/mL Serum Total Protein 7.3 (6.3-8.2) g/dL Albumin 4.5 (3.5-5.0) g/dL SARS-CoV-2 (PCR) (NEGATIVE) - Progress Progress: unchanged Air Movement: good Blood Culture(s) Obtained: Yes Antibiotics given: Yes - Departure Departure Disposition: Home Clinical Impression: COVID-19 Condition: Stable Critical Care Time: No Referrals: MAYRA MOLINA [Primary Care Provider] - Instructions: Coronavirus Disease 2019 (COVID-19) (DC) Prescriptions: Dexamethasone 4 mg [Decadron 4 MG] 4 mg PO BID 7 Days #28 tablet Azithromycin [Zithromax] 500 mg PO DAILY 5 Days #5 tablet
[2021-04-23 01:07] VITALS: BP 104/65; PULSE 70
[2021-04-23 01:08] VITALS: O2SAT 98
[2021-04-23] MEDS ORDERED: Zithromax 250 MG TABLET PO ONE (01:08)
[2021-04-23] MEDS ORDERED: Zithromax 250 MG TABLET ONE (01:13)
[2021-04-23] MEDS ORDERED: Decadron 4 MG PO ONE (01:15)
[2021-04-23 01:54] LABS: Appearance CLEAR (CLEAR); Bilirubin NEGATIVE (NEGATIVE); Blood NEGATIVE Ery/ul (0-5); Glucose >=500 mg/dL (NEGATIVE); Ketones MODERATE (NEGATIVE); Leukocyte Esterase NEGATIVE (NEGATIVE); Mucus SLIGHT /HPF (NEGATIVE); Nitrite NEGATIVE (NEGATIVE); Protein,Urine Dip NEGATIVE (Negative); Specific Gravity 1.018 (1.005-1.025); Urobilinogen NEGATIVE mg/dL (0-1); WBC 0-2 /HPF (0-5)
[2021-04-23 01:56] LABS: Bacteria NONE SEEN /HPF (NEGATIVE); RBC NONE SEEN /HPF (0-2)
--- NOTE | 2021-04-23 06:42 | XRAY ---
Indication: Short of breath. Comparison: June 19, 2018. Portable chest remains hyperinflated and clear. Heart not enlarged. Bony thorax intact. No new/acute findings.
== END 2021-04-23 01:40 | disposition home or self-care (01) ==
LOC: ED 22:40
DX: U07.1 COVID-19 (principal)
CPT/HCPCS: 36000; 36415; 71045; 80053; 81001; 83605; 83735; 83880; 84484; 85025; 85379; 85610; 87040; 93005; 93041; 96360; 96374; 99284; U0003; J2405; A9270-GY

== ENCOUNTER 2021-05-07 08:45 | Emergency (ER) | payer OTHER ==
[2021-05-07] MEDS ORDERED: Zofran 4 MG/2 ML VIAL IV ONE (09:25)
[2021-05-07] MEDS ORDERED: MORPHINE SULFATE 4 MG INJ IV ONE (09:25)
[2021-05-07] MEDS ORDERED: MORPHINE SULFATE 4 MG INJ ONE (09:26)
[2021-05-07] MEDS ORDERED: Sodium Chloride 0.9% 1000 ML 1,000 ML ONE (09:26)
--- NOTE | 2021-05-07 09:27 | ERPHSYRPT ---
- History of Present Illness Time Seen by Provider: 05/07/21 08:47 Source: patient Exam Limitations: no limitations Patient Subjective Stated Complaint: Patient states he believes he has a collapsed lung. States he in uncomfortable on his right side of chest that it hurts to take a deep breath and lean forward. States it feels like he is "under water". States he also has epigastric pain. Triage Nursing Assessment: Patient to ED for chest pain and shortness of breath. History of collapsed lung. Lung sounds on right side diminished. Shortness of breath with activity. Epigastric pain with movement. 95% on room air. Physician History: 41 years old male with history of COPD, multiple spontaneous pneumothoraces in the past needing chest intubations presented in the ER with shortness of breath upon waking up this morning, continuous, moderate, aggravated with deep breathing and leaning forward with some substernal/right-sided chest pain. No palpitations. Patient is on room air 95%. Reports symptoms similar to last time when he had a spontaneous pneumothorax. No history of CAD. Patient also reports being tested positive for COVID-19 little over 2 weeks ago and finished quarantine and has been tested negative. Did not have Covid vaccine. Timing/Duration: today, constant, sudden Activities at Onset: sleep Severity of Dyspnea-Max: moderate Severity of Dyspnea-Current: moderate Possible Cause: unknown cause Modifying Factors: Worsens With: coughing, deep breath, exertion Associated Symptoms: anxiety, chest pain/discomfort, painful breathing, tightness Allergies/Adverse Reactions: hydrocodone bitartrate [From Vicodin] Allergy (Mild, Verified 06/19/18 00:17) Rash dexamethasone [From Decadron] Allergy (Unknown, Verified 05/07/21 09:05) Home Medications: No Home Meds [No Home Meds] 1 ea MC UD 12/22/16 [History] Hx Tetanus, Diphtheria Vaccination/Date Given: Yes Hx Influenza Vaccination/Date Given: No Hx Pneumococcal Vaccination/Date Given: No Travel Risk - International Travel Have you traveled outside of the country in past 3 weeks: No - Coronavirus Screening Are you exhibiting any of the following symptoms?: Yes Symptoms: Shortness of Breath - Vaccine Status Have you recieved a Covid-19 vaccination: No - Review of Systems Constitutional: Fatigue Eyes: No Symptoms Ears, Nose, & Throat: No Symptoms Respiratory: Dyspnea, Dyspnea on Exertion (BOYD) Cardiac: Chest Pain Abdominal/Gastrointestinal: No Symptoms Genitourinary Symptoms: No Symptoms Musculoskeletal: No Symptoms Skin: No Symptoms Neurological: No Symptoms Psychological: Anxiety Endocrine: No Symptoms Hematologic/Lymphatic: No Symptoms Immunological/Allergic: No Symptoms - Past Medical History Pertinent Past Medical History: Yes Neurological History: Migraines ENT History: No Pertinent History Cardiac History: High Cholesterol Respiratory History: COPD, Emphysema, Other Endocrine Medical History: No Pertinent History Musculoskeletal History: No Pertinent History GI Medical History: No Pertinent History History: No Pertinent History Psycho-Social History: No Pertinent History Male Reproductive Disorders: No Pertinent History Other Medical History: chronic back pain. collapsed lung spontaneous - Past Surgical History Past Surgical History: Yes Neuro Surgical History: No Pertinent History Cardiac: No Pertinent History Respiratory: Other Gastrointestinal: No Pertinent History Genitourinary: No Pertinent History Musculoskeletal: No Pertinent History Male Surgical History: No Pertinent History Other Surgical History: "lung surgery" - Social History Smoking Status: Never smoker How long have you smoked: 25 Exposure to second hand smoke: No Drug Use: marijuana Patient Lives Alone: No - Nursing Vital Signs Nursing Vital Signs: Initial Vital Signs Temperature 97.2 F 05/07/21 08:46 Pulse Rate 83 05/07/21 08:46 Respiratory Rate 20 05/07/21 08:46 Blood Pressure 147/91 05/07/21 08:46 O2 Sat by Pulse Oximetry 96 05/07/21 08:46 Pain Scale Pain Intensity 2 - Physical Exam General Appearance: no apparent distress, alert, anxiety Eye Exam: PERRL/EOMI, eyes nml inspection Ears, Nose, Throat Exam: hearing grossly normal, normal ENT inspection, normal pharynx Neck Exam: normal inspection, non-tender, supple, full range of motion Respiratory Exam: diminished breath sounds, other (Absent breath sounds on right. Hyperresonance on right.), No chest tenderness Cardiovascular/Chest Exam: normal heart sounds, regular rate/rhythm (Yes) Abdominal/Gastrointestinal Exam: soft, normal bowel sounds, No tenderness Extremity Exam: non-tender, normal range of motion, normal inspection, normal capillary refill Neurologic Exam: alert, oriented x 3, cooperative SpO2: 95 Procedures - Chest Tube Time of Procedure: 09:50 Timeout: Performed Chest Tube Location: [address] [place] [address] Size of Taiwanese Tube (cm): 32 Chest Tube Procedure: sterile drapes applied, sterile dressing applied, vaseline gauze Anesthesia: 1% Lidocaine w/ Epi Volume Anesthetic (ccs): other (6) Ortega of Air Gallia: Yes Tube Drainage: air Tube Sutured to Skin: Yes Post Procedure CXR?: Yes Progress: Surgical procedure very well. - Course Nursing assessment & vital signs reviewed: Yes EKG Interpreted by Me: RATE (83), Sinus Rhythm, Right [place] Deviation, NORMAL INTERVALS (Nonspecific T wave changes), Non-specific ST Changes Ordered Tests: Medication Summary Discontinued Medications Generic Name Dose Route Start Last Admin Trade Name Suhailq PRN Reason Stop Dose Admin Sodium Chloride 1,000 mls @ 100 mls/hr 05/07/21 09:30 05/07/21 09:29 Sodium Chloride 0.9% 1000 Ml IV 06/06/21 09:29 100 mls/hr .Q10H ELAYNE Administration Sodium Chloride Confirm 05/07/21 09:26 Sodium Chloride 0.9% 1000 Ml Administered 05/07/21 09:27 Dose 1,000 mls @ ud .ROUTE .STK-MED ONE Insulin Human Regular 4 unit 05/07/21 11:57 05/07/21 12:03 Humulin R IV 05/07/21 11:58 4 unit STAT ONE Administration Protocol Insulin Human Regular Confirm 05/07/21 12:01 Humulin R Administered 05/07/21 12:02 Dose 4 unit .ROUTE .STK-MED ONE Morphine Sulfate 4 mg 05/07/21 09:25 05/07/21 09:29 Morphine Sulfate 4 Mg Inj IV 05/07/21 09:26 4 mg STAT ONE Administration Morphine Sulfate Confirm 05/07/21 09:26 Morphine Sulfate 4 Mg Inj Administered 05/07/21 09:27 Dose 4 mg .ROUTE .STK-MED ONE Ondansetron HCl 4 mg 05/07/21 09:25 05/07/21 09:30 Zofran 4 Mg/2 Ml Vial IV 05/07/21 09:26 4 mg STAT ONE Administration Ondansetron HCl Confirm 05/07/21 09:29 Zofran 4 Mg/2 Ml Vial Administered 05/07/21 09:30 Dose 4 mg .ROUTE .STK-MED ONE Lab/Rad Data: Laboratory Result Diagrams 05/07/21 09:25 05/07/21 09:25 Laboratory Results 05/07/21 05/07/21 05/07/21 Range/Units 12:41 12:07 11:58 WBC (4.0-10.5) K/mm3 RBC (4.1-5.6) M/mm3 Hgb (12.5-18.0) gm/dl Hct (42-50) % MCV (78-100) fl MCH (26-32) pg MCHC (32-36) g/dl RDW (11.5-14.0) % Plt Count (150-450) K/mm3 MPV (7.5-11.0) fl Gran % (36.0-66.0) % Eos # (Auto) (0-0.5) Absolute Lymphs (auto) (1.0-4.6) Absolute Monos (auto) (0.0-1.3) Lymphocytes % (24.0-44.0) % Monocytes % (0.0-12.0) % Eosinophils % (0.00-5.0) % Basophils % (0.0-0.4) % Absolute Granulocytes (1.4-6.9) Basophils # (0-0.4) Sodium (137-145) mmol/L Potassium (3.5-5.1) mmol/L Chloride (98-107) mmol/L Carbon Dioxide (22-30) mmol/L Anion Gap (5-15) MEQ/L BUN (9-20) mg/dL Creatinine (0.66-1.25) mg/dL Estimated GFR ML/MIN Glucose (74-106) mg/dL POC Glucometer 278 H (74 to 106) mg/dL Hemoglobin A1c 9.12 H (4.5-6.0) % Calcium (8.4-10.2) mg/dL Total Bilirubin (0.2-1.3) mg/dL AST (17-59) U/L ALT (0-50) U/L Alkaline Phosphatase (38-126) U/L Troponin I < 0.012 (0.000-0.034) ng/mL Serum Total Protein (6.3-8.2) g/dL Albumin (3.5-5.0) g/dL 05/07/21 05/07/21 05/07/21 Range/Units 09:25 09:25 09:25 WBC 5.8 (4.0-10.5) K/mm3 RBC 4.60 (4.1-5.6) M/mm3 Hgb 13.5 (12.5-18.0) gm/dl Hct 40.6 L (42-50) % MCV 88.3 (78-100) fl MCH 29.3 (26-32) pg MCHC 33.3 (32-36) g/dl RDW 12.2 (11.5-14.0) % Plt Count 222 (150-450) K/mm3 MPV 11.2 H (7.5-11.0) fl Gran % 68.1 H (36.0-66.0) % Eos # (Auto) 0.11 (0-0.5) Absolute Lymphs (auto) 1.26 (1.0-4.6) Absolute Monos (auto) 0.46 (0.0-1.3) Lymphocytes % 21.6 L (24.0-44.0) % Monocytes % 7.9 (0.0-12.0) % Eosinophils % 1.9 (0.00-5.0) % Basophils % 0.5 (0.0-0.4) % Absolute Granulocytes 3.96 (1.4-6.9) Basophils # 0.03 (0-0.4) Sodium 137 (137-145) mmol/L Potassium 4.5 (3.5-5.1) mmol/L Chloride 102 (98-107) mmol/L Carbon Dioxide 27 (22-30) mmol/L Anion Gap 13.0 (5-15) MEQ/L BUN 21 H (9-20) mg/dL Creatinine 0.84 (0.66-1.25) mg/dL Estimated GFR > 60.0 ML/MIN Glucose 362 H (74-106) mg/dL POC Glucometer (74 to 106) mg/dL Hemoglobin A1c (4.5-6.0) % Calcium 9.0 (8.4-10.2) mg/dL Total Bilirubin 0.10 L (0.2-1.3) mg/dL AST 18 (17-59) U/L ALT 14 (0-50) U/L Alkaline Phosphatase 59 (38-126) U/L Troponin I < 0.012 (0.000-0.034) ng/mL Serum Total Protein 6.8 (6.3-8.2) g/dL Albumin 3.7 (3.5-5.0) g/dL - Progress Progress: improved, re-examined Air Movement: fair, good Progress Note: 05/07/21 10:06 41 years old is evaluated for difficulty breathing with no breath sounds on the right side. Chest x-ray confirmed tension pneumothorax, 32 Taiwanese chest intub ation is done with reexpansion of lung confirmed on x-ray. I will obtain CT chest as well. Patient needs to be admitted. 05/07/21 11:[address] chest which showed no PE. Bilateral groundglass opacities consistent with viral pneumonia/COVID-19. Patient is not symptomatic for Covid related pneumonia. I do not think he needs antibiotic and he is been tested negative per patient. CT showed minimal residual pneumothorax 9 mm on the lateral side. Discussed with , reviewed history, work-up and current management, agreed with admission. Plan discussed with patient who understand and agrees with it as well. Patient blood sugar is in the 300s and not taking any medications and did not eat anything before he came in. I believe he is diabetic and does hav given 4 units of insuline as on recheck his blood sugar in the 270s. 05/07/21 12:33 Initial plan was to admit patient in [facility] but before patient was transferred to came in and recommended transfer as there is no staffing available to take care of this patient in here. Discussed with Dr. Johnson at [facility], reviewed history, work-up and current management, agreed with transfer. Plan discussed with patient to understand and agrees with it. 05/07/21 12:34 Blood Culture(s) Obtained: No Antibiotics given: No Discussed with : [place], Other (Dr. Johnson [facility]) Counseled pt/family regarding: lab results, diagnosis, rad results - Departure Departure Disposition: Transfer Clinical Impression: Tension pneumothorax, spontaneous, Diabetes mellitus, new onset Condition: Good Critical Care Time: Yes Critical Care Time(excluding separately billable procedures): Critical 30-74 mins Referrals: MAYRA MOLINA [Primary Care Provider] -
[2021-05-07] MEDS ORDERED: Zofran 4 MG/2 ML VIAL ONE (09:29)
[2021-05-07] MEDS ORDERED: Sodium Chloride 0.9% 1000 ML 1,000 ML IV SCH (09:30)
[2021-05-07 09:41] LABS: Absolute Neutrophil Ct (ANC) 3.96 (1.4-6.9); BASOPHIL % 0.5 % (0.0-0.4); Basophil (Absolute #) 0.03 (0-0.4); Eosinophil % 1.9 % (0.00-5.0); Eosinophil (Absolute #) 0.11 (0-0.5); Hematocrit 40.6 % (42-50); Hemoglobin 13.5 gm/dl (12.5-18.0); Lymphocyte (Absolute #) 1.26 (1.0-4.6); Lymphocytes % 21.6 % (24.0-44.0); Mean Cell Volume 88.3 fl (78-100); Mean Corpuscular Hemoglobin 29.3 pg (26-32); Mean Corpuscular Hgb Concent. 33.3 g/dl (32-36); Mean Platelet Volume 11.2 fl (7.5-11.0); Monocyte (Absolute #) 0.46 (0.0-1.3); Monocytes % 7.9 % (0.0-12.0); Neutrophil % 68.1 % (36.0-66.0); Platelet Count 222 K/mm3 (150-450); Red Cell Distribution Width 12.2 % (11.5-14.0); White Blood Count 5.8 K/mm3 (4.0-10.5)
[2021-05-07 09:46] LABS: ALBUMIN 3.7 g/dL (3.5-5.0); ALKALINE PHOSPHATASE 59 U/L (38-126); BLOOD UREA NITROGEN 21 mg/dL (9-20); CHLORIDE 102 mmol/L (98-107); Carbon Dioxide 27 mmol/L (22-30); Creatinine 1 0.84 mg/dL (0.66-1.25); EST GLOMERULAR FILTRATION RATE > 60.0 ML/MIN; Glucose 362 mg/dL (74-106); Potassium 4.5 mmol/L (3.5-5.1); SGOT/AST 18 U/L (17-59); SGPT/ALT 14 U/L (0-50); SODIUM 137 mmol/L (137-145); Total Protein 6.8 g/dL (6.3-8.2)
[2021-05-07] MEDS ORDERED: HUMULIN R IV ONE (11:57)
[2021-05-07] MEDS ORDERED: HUMULIN R ONE (12:01)
[2021-05-07 13:19] VITALS: BP 125/74; PULSE 72
[2021-05-07 16:04] VITALS: O2SAT 95
--- NOTE | 2021-05-07 21:21 | XRAY ---
Indication: Pneumothorax. History right lung "collapse." Comparison: April 23, 2021. Portable chest demonstrates new greater than 75% right pneumothorax. Left lung demonstrates new patchy airspace disease without consolidation/effusion. Heart and mediastinal structures within normal limits. Bony thorax intact. Comment: Preliminary interpretation made by C. No critical discrepancy.
--- NOTE | 2021-05-07 21:23 | XRAY ---
Indication: Chest tube placement. Comparison: Taken earlier in the day. Portable chest demonstrates new right chest tube with the tip projecting over the apex. Right lung reinflated 70-80% with now diffuse patchy airspace disease. Left lung unchanged with patchy airspace disease. Heart and mediastinal structures within normal limits. Bony thorax intact. Comment: Preliminary interpretation made by [facility]. No critical discrepancy.
--- NOTE | 2021-05-07 21:25 | XRAY ---
Indication: Right pneumothorax with chest tube. Multiple contiguous ex images obtained through the chest using 80 cc Isovue 370 contrast and PE protocol. Comparison: June 19, 2018. There is good opacification of the pulmonary arteries to include the lobar and segmental branches. No pulmonary embolus. Heart not enlarged. Aorta is normal in course and caliber. No pathologic mediastinal/hilar lymphadenopathy. Right-sided chest tube with the tip near the apex. Right lung inflated 95-99%. Lungs demonstrate new diffuse peripheral bilateral airspace disease with bilateral lower lobe consolidations. No effusion. Bony thorax intact. Impression: 1. Continued negative pulmonary embolus. 2. New right chest tube in situ. Right lung inflated 95-99%. 3. New diffuse bilateral peripheral airspace disease, only seen with COVID 19 pneumonia. Comment: Preliminary interpretation made by C. No critical discrepancy.
== END 2021-05-07 13:00 | disposition short-term general hospital (02) ==
LOC: ED 08:45
DX: J93.0 Spontaneous tension pneumothorax (principal); R10.13 Epigastric pain
CPT/HCPCS: 36000; 36415; 71045; 71260; 80053; 82947; 83036; 84484; 85025; 93005; 96374; 96375; 99285; 99291; J1815; J2270; J2405